=== PATIENT | female | born 1970 | race Caucasian/White ===

== ENCOUNTER 2020-06-20 19:33 | Emergency (ER) | payer OTHER, MEDICAID ==
[~2020-06-20] VITALS: Ht 170.2 cm; Wt 90.7 kg
[2020-06-20 19:43] VITALS: BP 159/97
[2020-06-20 20:40] VITALS: BP 159/97
== END 2020-06-20 20:40 | disposition left against medical advice (07) ==
LOC: MED 19:33
DX: R06.02 Shortness of breath (principal); Z53.21 Procedure and treatment not carried out due to patient leaving prior to being seen by health care provider

== ENCOUNTER 2020-12-17 11:33 | Emergency (ER) | payer OTHER, MEDICAID ==
[~2020-12-17] VITALS: Ht 170.2 cm; Wt 535.2 kg
[2020-12-17 11:42] VITALS: BP 158/104
--- NOTE | 2020-12-17 12:00 | NUR ---
PT AMBULATED TO BED 12
--- NOTE | 2020-12-17 12:07 | NUR ---
DR. BAEZA BEDSIDE EVALUATING PT
--- NOTE | 2020-12-17 12:09 | NUR ---
50 Y FEMALE WITH C/O SEIZURE X LAST NIGHT, SOB X 3 DAYS AND LEFT LEG PAIN S/P FALL X 1.5 WEEK. PT IS UNABLE TO RECALL SEZIURE AND STATED "SHE JUST REMEBERS WAKING UP ON THE FLOOR." UPON ASSESSMENT BREATH SOUNDS CLEAR AND S1/S2 HEARD. PERRLA INTACT. SLIGHT BRUISE NOTED ON FOREHEAD ON L SIDE THAT IS SENSITIVE TO TOUCH. PMH: SEIZURE , ASTHMA, OSTEOARTHRITIS ALLERGIES: LISINOPRIL
[2020-12-17] MEDS ORDERED: NACL 0.9% 1,000 ML IV ONE (12:15)
[2020-12-17] MEDS ORDERED: METOCLOPRAMIDE 10 MG/2 ML INJ VIAL IVP ONE (12:15)
--- NOTE | 2020-12-17 12:27 | NUR ---
pt taken to ct via yord[facility]
--- NOTE | 2020-12-17 13:17 | NUR ---
BLOOD WORK COLLECTED AND WALKED OVER TO LAB
--- NOTE | 2020-12-17 13:33 | NUR ---
Patient appears to be resting comfortably in bed with eyes closed and lights off. Vital Signs within normal limits. Respirations even and unlabored. bed in lowest position with siderail x2 up. will continue to monitor
[2020-12-17 13:34] LABS: BASOPHILS # (AUTO) 0.1 K/uL (0.00-0.22); BASOPHILS % (AUTO) 0.6 % (0.0-2.0); EOSINOPHILS # (AUTO) 0.2 K/uL (0-0.4); EOSINOPHILS % (AUTO) 1.7 % (0.0-4.0); HEMATOCRIT 37.5 % (36-48); HEMOGLOBIN 12.1 g/dL (12.0-16.0); LYMPHOCYTES # (AUTO) 1.6 K/uL (2.5-16.5); LYMPHOCYTES % (AUTO) 15.5 % (20.5-51.1); MEAN CORPUSCULAR HEMOGLOBIN 26 pg (27-31); MEAN CORPUSCULAR HGB CONC 32 g/dL (33-37); MONOCYTES # (AUTO) 0.6 K/uL (0.8-1.0); MONOCYTES % (AUTO) 6.1 % (1.7-9.3); NEUTROPHILS # (AUTO) 7.9 K/uL (1.8-7.7); NEUTROPHILS % (AUTO) 76.1 % (42.2-75.2); PLATELET COUNT (AUTO) 308 K/uL (140-450); RED BLOOD CELL COUNT(AUTO) 4.63 MIL/uL (4.20-5.40); RED CELL DISTRIBUTION WIDTH 17.1 % (11.6-13.7); WHITE BLOOD COUNT (AUTO) 10.4 K/uL (4.8-10.8)
[2020-12-17 13:42] LABS: ANION GAP 10.5 (8-16); CARBON DIOXIDE 27.2 mmol/L (21-32); POTASSIUM 3.7 mmol/L (3.5-5.1); TOTAL BILIRUBIN 0.2 mg/dL (0.0-1.0)
[2020-12-17] MEDS ORDERED: LACO200T PO (14:21)
[2020-12-17] MEDS ORDERED: LAMO100T19 PO (14:21)
[2020-12-17 15:03] VITALS: BP 141/87
--- NOTE | 2020-12-17 15:03 | NUR ---
Patient discharged with v/s stable. Written and verbal after care instructions given and explained. Patient alert, oriented and verbalized understanding of instructions. Ambulatory with steady gait. All questions addressed prior to discharge. ID band removed. Patient advised to follow up with PMD. Rx of VIMPAT & LAMOTRIGINE given. Patient educated on indication of medication including possible reaction and side effects. Opportunity to ask questions provided and answered.
== END 2020-12-17 15:03 | disposition home or self-care (01) ==
LOC: MED 11:33
DX: R56.9 Unspecified convulsions (principal); R51.9 Headache, unspecified; F15.10 Other stimulant abuse, uncomplicated; J45.909 Unspecified asthma, uncomplicated; Z79.899 Other long term (current) drug therapy; Z88.8 Allergy status to other drugs, medicaments and biological substances
CPT/HCPCS: 36415; 70450; 80053; 85025; 93005; 96361; 96374; 99285; J2765; J7030